=== PATIENT | female | born 1965 | race Caucasian/White ===

== ENCOUNTER 2022-04-27 00:38 | Day surgery (SDC) | payer OTHER, SELFPAY ==
[2022-04-20 13:18] VITALS: BMI 22.1
[2022-04-27 08:19] VITALS: BP 113/73; PULSE 63; RESP 18; TEMP 36.3; O2SAT 100; BMI 23.1
[2022-04-27] MEDS: LACTATED RINGERS 1,000 ML 150 ML IV CONT (08:37)
--- NOTE | 2022-04-27 08:48 | P.PNAN_ITS ---
Anes - Initial Pre Proc Eval Procedure: Operation Date: 04/27/22 09:30 Proposed Procedures p Screening Colonoscopy - Tashi Rick MD Date/Time: 04/27/22 08:48 Surgeon: Tashi Rick MD Pre Op Diagnosis: neoplasm screening Patient Data Age: 57 Gender: F Height: 1.73 m Weight: 69 kg Last Vital Signs Temp 36.3 C L 04/27/22 08:19 Pulse 63 04/27/22 08:19 Resp 18 04/27/22 08:19 BP 113/73 04/27/22 08:19 Pulse Ox 100 04/27/22 08:19 O2 Del Method Room Air 04/27/22 08:19 Allergies Allergy/AdvReac Type Severity Reaction Status Date / Time pollen extracts Allergy Unknown reaction Verified 04/27/22 08:18 Home Medications Medication Instructions Recorded Confirmed Type fluticasone propionate 50 2 spray intranasal DAILY #15.8 mL 01/06/19 04/27/22 Rx mcg/actuation nasal spray,suspension (Allergy Relief (fluticasone)) Patient hx anesthesia problems: none Family hx anesthesia problems: none Results Review: All pre-operative results and documents have been reviewed as part of the pre- operative evaluation. REPLACED BY [facility] Social History Social History Smoking status: Never smoker Alcohol intake: current Drinks per week: 4 Alcohol use details: WINE Substance use: never Substance use type: does not use Lack of Transportation: No Lack of Food: Never True Current Housing: I Have Housing Concerned About Future Housing: No Difficulty Paying Gas/Electric Bills: No Difficulty Paying for Meds: No Currently Unemployed: No Education: Master's Degree or Higher Difficulty w/ Childcare or Family Care: No Living arrangements: with family Spiritual care concerns: No Anes - Eval Final PreProcedure Day of Procedure 04/27/22 08:48 Patient weight: normal Heart: regular rate and rhythm Lungs: clear to auscultation Airway: Mallampati scale class 1 Neurological: alert and oriented Last oral intake: >/= 8 hours ASA classification: I Emergent: no Anesthetic plan: proceed Anesthesia type and monitoring: general GIVS and standard monitoring Results Review: All pre-operative results and documents have been reviewed as part of the pre- operative evaluation. Informed Consent: The patient's anesthetic plan and its attendant risks and benefits were discussed with the patient/family/POA. Questions were solicited and answers provided to the satisfaction of the patient/family/POA.
--- NOTE | 2022-04-27 09:11 | PM.HPGS ---
History of Present Illness History of Present Illness Consent: Risks, benefits, and alternatives have been discussed and questions answered. Patient agrees to proceed with procedure. Chief complaint: neoplasm screening Narrative: Raine Lewis is a 57 year old female here for first screening colonoscopy Review of Systems Constitutional: Constitutional: Denies headache(s) and Denies weakness Eyes: Eyes: Denies blurry vision ENT: Reports Normal hearing present, Denies headache(s) and Denies neck pain Cardiovascular: Cardiovascular: Denies chest pain and Denies dyspnea Respiratory: Respiratory: Denies dyspnea Gastrointestinal: Gastrointestinal: Reports no additional gastrointestinal complaints Genitourinary: Genitourinary: Denies dysuria Musculoskeletal: Musculoskeletal: Denies neck pain Integumentary/Breasts: Skin/Breast: Denies dry skin Neurologic: Reports Normal hearing present, Denies headache(s) and Denies weakness Psychiatric: Psychiatric: Denies anxiety Endocrine: Endocrine: Denies change in body appearance Hematologic/Lymphatic: Hematologic/Lymphatic: Denies easy bleeding Allergic/Immunologic: Allergic/Immunologic: Denies urticaria ON LICENSE OF [facility] Past Medical History Medical History (Updated 04/27/22 @ 09:11 by Tashi Rick MD) Colon cancer screening Social History Social History Smoking status: Never smoker Alcohol intake: current Drinks per week: 4 Alcohol use details: WINE Substance use: never Substance use type: does not use Lack of Transportation: No Lack of Food: Never True Current Housing: I Have Housing Concerned About Future Housing: No Difficulty Paying Gas/Electric Bills: No Difficulty Paying for Meds: No Currently Unemployed: No Education: Master's Degree or Higher Difficulty w/ Childcare or Family Care: No Living arrangements: with family Spiritual care concerns: No Meds Home Medications and Allergies Home Medications Medication Instructions Recorded Confirmed Type fluticasone propionate 50 2 spray intranasal DAILY #15.8 mL 01/06/19 04/27/22 Rx mcg/actuation nasal spray,suspension (Allergy Relief (fluticasone)) Allergies Allergy/AdvReac Type Severity Reaction Status Date / Time pollen extracts Allergy Unknown reaction Verified 04/27/22 08:18 Vital Signs Vital Signs - 24 hr 04/27/22 08:19 Temperature 97.4 F L Pulse Rate 63 Respiratory Rate 18 Blood Pressure 113/73 Pulse Oximetry 100 Oxygen Delivery Room Air Exam Const: General: comfortable and no acute distress HENMT: Face/Nose/Sinus: Normal nares present Eyes: General: appearance normal, both eyes and all related structures Neck: Neck: no JVD Resp: Auscultation: clear to auscultation bilaterally Cardio: Rate: regular rate Rhythm: regular rhythm GI: Inspection: non-distended GI Palp: Yes Soft to palpation Skin: General skin exam: normal color Neuro: General: gait normal Speech: normal speech Extrem: General: normal to inspection Psych: Mental Status: mental status grossly normal Assessment and Plan Assessment and plan (1) Colon cancer screening: Code(s): Z12.11 - Encounter for screening for malignant neoplasm of colon Status: Acute Assessment and Plan: colonoscopy
[2022-04-27 09:32] VITALS: BP 93/59; PULSE 62; RESP 16; O2SAT 99
[2022-04-27 09:42] VITALS: BP 98/58; PULSE 60; RESP 19; O2SAT 100
[2022-04-27 09:52] VITALS: BP 108/67; PULSE 63; RESP 22; O2SAT 100
== END 2022-04-27 09:57 | disposition home or self-care (01) ==
PROVIDERS: PCP Emergency Medicine; Visit Provider Internal Medicine Gastroenterology
PROC: 0DJD8ZZ Inspection of Lower Intestinal Tract, Via Natural or Artificial Opening Endoscopic (ICD-10-PCS; CPT 45378; principal; 2022-04-27 09:30)
DX: Z12.11 Encounter for screening for malignant neoplasm of colon (principal); K64.8 Other hemorrhoids
CPT/HCPCS: 45378; J2704; J7120

== ENCOUNTER 2024-06-26 08:44 | Outpatient (CLI) | payer BC, SELFPAY ==
--- NOTE | ~2024-06-26 | XR_ITS ---
EXAM: XR hand BI arthritis min 3V DATE: 06/26/2024 08:58 HISTORY: Pain joints of 1st and 2nd fingers bilat hands onset x 6 mos . COMPARISON: None available. FINDINGS: Normal mineralization. No fracture or dislocation. No lytic or blastic lesion. Severe dege nerative change at the bilateral first CMC joints. Moderate degenerative change at the bilateral blaine caphe joints. Mild degenerative changes in the bilateral DIP and PIP joints. No subluxation. No erosi on or periosteal change. Soft tissues within normal limits. 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 Reviewed, dictated and finalized at location K.
== END 2024-06-26 08:45 | disposition home or self-care (01) ==
PROVIDERS: PCP Family Medicine; Visit Provider Family Medicine
DX: M79.642 Pain in left hand (principal); M79.641 Pain in right hand
CPT/HCPCS: 73130